=== PATIENT | female | born 1970 | race Caucasian/White ===

== ENCOUNTER 2016-09-27 08:01 | Day surgery (SDC) | payer BC, OTHER ==
--- NOTE | 2016-09-18 11:11 | HP ---
Admitting History and Physical - Primary Care Physician PCP: Chelsi Corona - Admission Chief Complaint: Left breast mass/PASH and radial scar History of Present Illness: 46 year old premanapausal female with H/O bilateral augmentation and benign right breast biopsy. Mammogram 10/2015 for a palpable finding right axilla showed dense breasts. US 06/2016 showed 6mm nodule with irregular margins left breast 9:00 and a decreasing mass right breast 9:00. US core bx left breast 9:00 showed radial scar and PASH. History Source: Patient Limitations to Obtaining History: No Limitations - Past Medical History INSURANCE OFFICE MANAGER: Yes: Other (subdural hematoma 2012) Musculoskeletal: Yes: Other (Right knee meniscal tear and right labral tear of hip 2013) - Past Surgical History Additional Past Surgical History: Knee and hip repair right - Smoking History Smoking history: Current every day smoker (one PPD for 30 yrs) Have you smoked in the past 12 months: Yes - Alcohol/Substance Use Hx Alcohol Use: Yes (social) Home Medications - Allergies Allergies/Adverse Reactions: Allergies Allergy/AdvReac Type Severity Reaction Status Date / Time epinephrine Allergy Verified 09/18/16 11:14 Family Disease History - Family Disease History Family Disease History: CA: Grandparent (mat GF CRC and prostate ca 70), Mother (uterine ca 50 ) Physical Examination Constitutional: Yes: Well Nourished Breast(s): Yes: Other (Symmetrical bilateral implants appear intact and soft nodularity bilaterally no palpable suspicious mass post bx changes left breast) Problem List - Problems (1) Mass of left breast Code(s): N63 - UNSPECIFIED LUMP IN BREAST Assessment/Plan Left breast wide excision with mammogram needle localization
[2016-09-25 14:07] VITALS: BMI 20.8
[2016-09-27] MEDS ORDERED: LIDOCAINE HCL/PF 2% SDV 5ML VIAL ONE (11:37)
[2016-09-27] MEDS ORDERED: DEXAMETHASONE SOD PHOSPHATE 4 MG/1 ML VIAL ONE (11:37)
[2016-09-27] MEDS ORDERED: MIDAZOLAM HCL 2 MG/2 ML SINGLE DOSE VIAL ONE (11:37)
[2016-09-27] MEDS ORDERED: ONDANSETRON 4 MG/2 ML VIAL ONE (11:37)
[2016-09-27] MEDS ORDERED: KETOROLAC TROMETHAMINE 30 MG/1 ML VIAL ONE ×2 (11:37→11:56)
[2016-09-27] MEDS ORDERED: ceFAZolin SODIUM 1 GM VIAL ONE (11:37)
[2016-09-27] MEDS ORDERED: PROPOFOL 20 ML ONE ×2 (11:37)
[2016-09-27] MEDS ORDERED: DESFLURANE GAS 240 ML BOTTLE IH ONE (12:06)
[2016-09-27] MEDS ORDERED: ePHEDrine SULFATE 50 MG/1 ML AMPULE ONE (12:08)
[2016-09-27] MEDS ORDERED: BUPIVACAINE HCL/PF 0.25% (2.5MG/ML) 10 ML VIAL IJ ONE (13:00)
[2016-09-27] MEDS ORDERED: LIDOCAINE 1%/EPI 1:100000 (20 ML MULTI DOSE VIAL) INF ONE (13:00)
[2016-09-27] MEDS ORDERED: DEXTROSE 5%-0.45% SALINE 1,000 ML IV SCH (13:00)
[2016-09-27] MEDS ORDERED: BUPIVACAINE HCL 0.25% 125 MG/50 ML VIAL ONE (13:02)
[2016-09-27] MEDS ORDERED: ONDANSETRON 4 MG/2 ML VIAL IVPB PRN (13:33)
[2016-09-27] MEDS ORDERED: KETOROLAC TROMETHAMINE 30 MG/1 ML VIAL IVPUSH PRN (13:33)
[2016-09-27 14:24] VITALS: TEMP 97.8
[2016-09-27 14:53] VITALS: BP 98/54; PULSE 76
--- NOTE | 2016-09-28 09:14 | OP ---
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 PROCEDURE: Left wide excision with needle localization. SURGEON: Chelsi Corona MD DIRECTOR REHABILITATION PROGRAM: None. ANESTHESIA: General with LMA. ANESTHESIOLOGIST: Melchor Jacob MD SPECIMENS: 1. Left breast tissue. 2. Medial margin. 3. Inferior margin. ESTIMATED BLOOD LOSS: Minimal. INDICATION FOR PROCEDURE: The patient is a 46-year-old woman who had a mammogram showing a nodule in the left breast at 9 o'clock. Ultrasound-guided biopsy of the mass showed radial scar and PASH. Surgical excision was recommended. The procedure was explained to the patient along with the usual risks and complications. PROCEDURE: The patient was taken to breast imaging, where she underwent ultrasound localization of the clip in the left breast at 9 o'clock. She was taken to ambulatory surgery, where informed consent was obtained. The left breast was marked to establish laterality. She was then taken to the operating room and placed on the operating table in the supine position. Sequential compression devices were placed on both legs. She received antibiotics prior to surgery. After anesthesia was initiated, the left breast was prepped and draped in the usual fashion. Examination of the left breast showed a localizing wire which entered the breast at the inferior areola. The tip was at the medial portion of the breast at 9 o' clock. The patient had a previous incision from breast augmentation. An incision was made at the medial border of the areola. The incision was deepened using electrocautery. The dissection continued medially towards the tip of the needle which was easily palpated. The tissue around the tip of the needle was mobilized. Once the tissue was completely from the surrounding breast parenchyma, the needle was disassembled and the wire was brought into the operative field and the specimen was removed. This specimen was marked with silk sutures with a long suture for the lateral margin and a short suture for the superior margin. A specimen radiograph did not show the clip. Additional tissue was taken from the medial part of the dissection and from the inferior part of the dissection. These were labeled with a suture at the biopsy cavity site. A specimen radiograph again did not show the clip. The clip was then found in 1 of the sponges used during surgery. All specimens were then placed in formalin and sent to Pathology for further examination. The wound was irrigated. Bleeding was controlled with electrocautery. The skin was infiltrated with 0.25% Marcaine. The dermis was closed with interrupted sutures of 3-0 Vicryl. The skin was closed with a running subcuticular closure of 4-0 Monocryl. The wound was cleaned and Dermabond was applied to the incision. Once the Dermabond was completely dry, a gauze dressing was placed. It was covered with a Tegaderm , and then a surgical bra was applied. The patient tolerated the procedure well. At the end of the procedure, all sponge and instrument counts were correct. I was present during the entire case. The patient was awakened and taken to the PACU in satisfactory condition. Nargis [id number] MTDD
--- NOTE | 2016-10-02 13:42 | PATH ---
Surgical Pathology Report Patient Name: ELEONORA ELIAS [facility]. Rec. #: [id number] /Age/Gender: 1970 (Age: 46) / F Account: [id number] Location: [facility] Taken: 09/27/2016 Received: 09/27/2016 Reported: 10/02/2016 Physicians: Chelsi Corona M.D. Specimen(s) Received A: LEFT BREAST WIDE EXCISION B: LEFT BREAST MEDIAL MARGIN C: LEFT BREAST ANTERIOR MARGIN Clinical History PASH, Radial scar Final Diagnosis A. BREAST, LEFT, WIDE EXCISION: BENIGN BREAST TISSUE SHOWING FIBROCYSTIC CHANGES INCLUDING CYST FORMATION, APOCRINE METAPLASIA, USUAL DUCTAL HYPERPLASIA (UDH) AND COLUMNAR CELL CHANGES WITH ASSOCIATED CALCIFICATIONS. B. BREAST, LEFT, MEDIAL MARGIN, EXCISION: BENIGN BREAST TISSUE. C. BREAST, LEFT, ANTERIOR MARGIN, EXCISION: BENIGN BREAST TISSUE SHOWING RADIAL SCAR WITH ASSOCIATED FIBROCYSTIC CHANGES. Electronically Signed Freda Hernandez M.D. Gross Description A. Received in formalin, labeled "left breast wide excision," is a 2.3 x 2.1 x 0.9 cm. rodriguez-yellow, irregular, portion of fibroadipose tissue with a needle localization wire present. There is a short suture marking the superior aspect and a long suture marking the lateral aspect, per the surgeon. There is no skin present. The specimen is inked as follows: superior and lateral blue; inferior green; medial yellow; anterior red; deep black. The specimen is serially sectioned from superior to inferior. Sectioning reveals diffuse dense, white fibrous tissue. No definitive masses are identified. The specimen is entirely and sequentially submitted in 6 cassettes with the superior margin in cassette 1 and the inferior margin in cassette 6. Total formalin fixation time: Approximately 6 hours B. Received in formalin, labeled "left breast medial margin," is a 1.8 x 1.2 x 0.2 cm irregular portion of fibroadipose tissue with a suture marking the biopsy cavity side, per the surgeon. The new margin is inked green and the specimen is serially sectioned. The specimen is entirely submitted in 2 cassettes. C. Received in formalin, labeled "left breast anterior margin," is a 1.5 x 1.3 x 0.2 cm irregular portion of fibroadipose tissue with a suture marking the biopsy cavity side, per the surgeon. The new margin is inked green and the specimen is serially sectioned. The specimen is entirely submitted in 2 cassettes 09/27/201609/27/2016
== END 2016-09-27 14:56 | disposition home or self-care (01) ==
LOC: FASU 08:01
PROVIDERS: ATTEND Surgery
PROC: 0HBU0ZZ Excision of Left Breast, Open Approach (ICD-10-PCS; principal; 2016-09-27 12:04)
DX: N60.82 Other benign mammary dysplasias of left breast (principal); N64.89 Other specified disorders of breast; N62 Hypertrophy of breast
CPT/HCPCS: 19281; 84703; 88307-TC; 94760; G0206-TC